=== PATIENT | female | born 1970 | race Caucasian/White ===

== ENCOUNTER 2023-04-09 10:12 | Outpatient (RCR) | payer BC, SELFPAY ==
[2023-04-09 10:29] VITALS: BP 178/84
[2023-04-09] MEDS: TREMFYA 100 MG SC (10:46)
[2023-04-09 11:30] VITALS: BP 149/88
== END 2023-04-12 08:01 | disposition home or self-care (01) ==
LOC: OID 10:12
PROVIDERS: ATTENDING PHYSICIAN Dermatology; FAMILY PHYSICIAN Family Medicine
DX: L40.0 Psoriasis vulgaris (principal)
CPT/HCPCS: 96372; J1628

== ENCOUNTER 2023-06-07 11:27 | Outpatient (RCR) | payer BC, SELFPAY ==
[2023-06-07 11:40] VITALS: BP 146/70
[2023-06-07] MEDS: TREMFYA 100 MG SC (11:50)
== END 2023-06-08 23:59 | disposition home or self-care (01) ==
LOC: OID 11:27
PROVIDERS: ATTENDING PHYSICIAN Dermatology; FAMILY PHYSICIAN Family Medicine
DX: L40.0 Psoriasis vulgaris (principal)
CPT/HCPCS: 96372; J1628

== ENCOUNTER 2023-08-02 11:22 | Outpatient (RCR) | payer BC, SELFPAY ==
[2023-08-02 11:29] VITALS: BP 152/94
[2023-08-02] MEDS: TREMFYA 100 MG SC (11:36)
== END 2023-08-03 10:01 | disposition home or self-care (01) ==
LOC: OID 11:22
PROVIDERS: ATTENDING PHYSICIAN Dermatology; FAMILY PHYSICIAN Family Medicine
DX: L40.0 Psoriasis vulgaris (principal)
CPT/HCPCS: 96372; J1628